=== PATIENT | female | born 1970 ===

== ENCOUNTER → 2018-04-21 | Outpatient (CLI) | payer OTHER, MEDICAID ==
--- NOTE | 2018-04-21 11:19 | NOWCEV ---
[facility] OUTPAT[facility] EVALUATION AND LETTER OF JUSTIFICATION Patient Name: PATRICIO LYN Physician: MD Michael Dhillon Date: 04/21/18 Therapist: Brook Clay PT,MSPT Date of : 1970 MR#: [id number] Contact: Subscriber: PATRICIO LYN Primary Ins: MEDICARE OUTPATIENT Subscriber #: [id number] Medicaid [id number] EVALUATION FINDINGS Medical history - Patricio is a 47y/o female with PMH significant for fibromyalgia , chronic fatigue syndrome, DDD in her lumbar spine with associated L leg pain, bulging discs in her cervical spine with associated L arm pain, as well as sleep apnea, depression and anxiety. She experiences severe pain which she rates as a 9/10 at worst, and is currently a 7/10 throughout her body. Patricio has been utilizing a std MWC for several years where she has to be dependently pushed by her caregivers to access the community. She was referred to this clinic to have recommendations made for the most medically appropriate PWC to allow for safe and independent access to the community. Functional Mobility - Patricio is dependent on her father and daughter to push her in a std MWC for all community mobility. She is not able to self propel a MWC due to severe pain in her arms and neck, as well as poor motor control, and poor endurance. At best she is only able to self propel a MWC ~20ft on level surfaces, and his causes significant exacerbation of symptoms. Patricio is only intermittently able to ambulate household distances with use of a rollator walker or sc. She reports that she is frequently bed ridden when her pain is high, and when she is having a flair of her chronic fatigue syndrome. When she does ambulate she has a wide EMERSON, very slow speed, significant shaking throughout her LEs and trunk, dec heel strike, dec push off and inc double limb stance time. During evaluation she was unable to walk 10' to complete a TUG and required close supervision with AD. She reports that she falls 3-4times per week when her legs give out on her, or she faints. To complete sit to stands, Patricio uses significant UE support and use of her cane. She has shaking throughout her body with the transitions and decreased balance once in standing. To complete sup to/from sit transitions, Patricio experiences significant pain and transitions very slowly. She is unable to lye flat due to pain in her LB. Motor involvement - Patricio has poor motor control as well as poor strength throughout her body. MMT is as follows: DF: 3/5 B, knee ext: 3-/5 B, hip flexion: 3-/5 B, shoulder abduction and flexion: 3-/5 B. Considerable shaking throughout her limbs is noted with all testing. Patricio demonstrate shaking and poor control throughout her limbs with all active open chair functional movements. She has tightness in her hamstrings, and B shoulder scaption is limited to ~95deg B in sitting and is painful in her neck and shoulders. Posture - Patricio sits with a level pelvis and shoulders. She has rounded shoulders and a somewhat forward head. Skin Sensation - Patricio in hypersensitive to light touch throughout her body. She does not have skin breakdown. She does report that she has intermittent bowel and bladder incontinence. Endurance - Patricio's endurance is severely limited by her chronic fatigue syndrome , as well as pain from her fibromyalgia and DDD in her neck and lumbar spine. When her symptoms are flared, she is unable to get out of bed, or perform any ambulation at a household level, even with a rw. At best she is able to ambulate at a slow pace with significant pain from her bedroom to the bathroom. She does not have the endurance to stand to prepare meals or wash up, and the frequently does not have the endurance to shower. To access the community she has to be pushed dependently in a MWC because she is unable to self propel even a light or ultra light weight model due to pain and fatigue. ADLs - Patircio requires assistance for all ADLs such as bathing, cooking, feeding ( when she is having a flair of her chronic fatigue syndrome), and cleaning. Cognitive/Social - Patricio lives alone in a single store home. There are currently 3 steps to enter from the garage, but the plan is to build a ramp over the stairs, as Patricio is frequently unable to get in and out of the house, even to attend medical appointments. Her father and daughter live very near by , and are her caregivers. They assist her with ADLs in the home, and push her dependently in her chair to attend medical appointments and to access the community. Current wheelchair - Patricio owns a std MWC which was purchased several years ago for community use. At this point, Patricio is unable to self propel the MWC due to her fatigue and pain levels and is dependent on her father/caregivers to push her. MEDICAL and FUNCTIONAL NEED/OBJECTIVES * Needed to procure a custom PWC to allow for safe, consistent, and independent access to the community to attend medical appointments and to shop. This will also provide Patricio with an option to access MRADLs in the home in the future when having a flair of her chronic fatigue syndrome and fibromyalgia. PRIMARY FUNCTIONAL LIMITATION (G Code) * Mobility CURRENT STATUS OF PRIMARY FUNCTIONAL LIMITATION (Severity Modifier) * At least 60 percent but less than 80 percent impaired, limited or restricted ( CL) GOAL STATUS OF PRIMARY FUNCTIONAL LIMITATION (Severity Modifier) * At least 60 percent but less than 80 percent impaired, limited or restricted ( CL) DISCHARGE STATUS OF PRIMARY FUNCTIONAL LIMITATION (Severity Modifier) * At least 60 percent but less than 80 percent impaired, limited or restricted ( CL) EQUIPMENT RECOMMENDATIONS AND JUSTIFICATIONS The following recommendations are believed to be the most cost effective way to meet the patients medical and functional needs. * Group 3 power base: Needed to provide Patricio with safe, consistent, and independent access to the community and to attend medical appointments. Patricio is not able to ambulate at a community level, even with an AD such as a cane or walker, as she frequently has difficulty walking household distances, and has had frequent falls. Patricio is not able to self propel a MWC, even a light or ultra light weight model due to her poor UE strength, poor motor control throughout her limbs, pain, and fatigue from her chronic fatigue syndrome. Patricio is not able to utilize a power scooter because she is not able to step up onto a scooter platform to transfer. Additionally, she would not be able to drive a scooter with a tiller system due to poor UE motor control and fatigue. The group 3 base is necessary to withstand the riggers of continuous use in an urban environment. Additionally, the suspension on the chair is necessary to allow for shock absorption when driving over uneven terrain in the community. This will be critical in managing Patricio's pain when utilizing her chair a a community level. * Captains seating: Needed to provide Patricio with postural support and control to allow her to maintain sitting in her chair for long enough periods of time to access the community. * Transit tie downs: Needed to allow Patricio's chair to be secured when being transported in her father's vechile to access the community. * Swing away joystick: : Needed so that joystick can be moved out of the way so it does not interfere with transfers. Additionally, it will allow Patricio to pull her chair more closely up to surfaces to limit the amount she has to reach to complete functional tasks, which will decrease exacerbation of her pain and fatigue. * Height adjustable arm rests: The elevated height is necessary to allow Patricio to safely push up to perform transfers. Additionally, the increased height is needed to provide Patricio with UE support when driving her chair to allow for improved motor control of her UEs, and to unload her shoulders to help manage pain. * Pelvic belt: Needed to provide Patricio with safety when driving her chair at a community level, and to secure her pelvis from sliding forward when driving. These recommendations are based on the likelihood that Patricio will require the use of a wheelchair for all community mobility for the rest of her life, and will likely progress to requiring use of a wheelchair for home access to [facility] in the future. If you have any questions or concerns regarding the stated recommendations, please feel free to contact the therapist at . Thank you for your cooperation in obtaining the necessary equipment for this patient. SAMI Tai
== END ==
DX: M79.7 Fibromyalgia (principal); M51.36 Other intervertebral disc degeneration, lumbar region; R53.82 Chronic fatigue, unspecified
CPT/HCPCS: 97162; G8978; G8979; G8980